=== PATIENT | female | born 1970 | race Caucasian/White ===

== ENCOUNTER → 2021-08-07 11:15 | Outpatient (BNVA) | payer OTHER, SELFPAY | PROVIDERS: PCP Internal Medicine; Visit Provider Physician Assistant Medical | DX: S89.92XA Unspecified injury of left lower leg, initial encounter (principal); X50.9XXA Other and unspecified overexertion or strenuous movements or postures, initial encounter | CPT/HCPCS: 73564; 99203 ==

== ENCOUNTER → 2021-08-13 10:59 | Outpatient (BNVA) | payer OTHER, SELFPAY | PROVIDERS: PCP Internal Medicine; Visit Provider Physician Assistant | DX: S89.92XA Unspecified injury of left lower leg, initial encounter (principal); X58.XXXA Exposure to other specified factors, initial encounter | CPT/HCPCS: 99214 ==

== ENCOUNTER → 2021-09-25 14:33 | Outpatient (BNVA) | payer OTHER, SELFPAY | PROVIDERS: PCP Nurse Practitioner Adult Health; Visit Provider Physician Assistant | DX: S89.92XD Unspecified injury of left lower leg, subsequent encounter (principal); X58.XXXD Exposure to other specified factors, subsequent encounter | CPT/HCPCS: 99213 ==

== ENCOUNTER 2021-10-01 15:00 | Outpatient (RCR) | payer OTHER, SELFPAY ==
--- NOTE | 2021-08-26 17:25 | MHC.PT.EP ---
[facility] [place] [address] Office [place] Office [address] [phone] F: [phone] F: [phone] F: [phone] F: [phone] Physical Therapy Plan of Care Date of Evaluation: Date of Surgery: n/a Diagnosis: L knee injury/pain/sprain Assessment: Pt is a pleasant 51yo F who presents to PT after injuring her L knee at work on 08/07/21. She presents to PT with current impairments in pain, decreased ROM, decreased quad and hip strength, decreased muscle length, soft tissue restrictions, and impaired gait. She is limited functionally by prolonged sitting, knee bending, prolonged standing/walking. She is an excellent candidate for skilled PT in order to address current impairments to facilitate return to PLOF. She will be seen 2x/week for 4 weeks and will be reassessed at that time. Frequency and Duration: The patient will be seen 2x/week for 4 weeks Short Term Goals: Pt will be I with [facility] to promote self management of symptoms Pt will increase L knee flexion by at least 5 degrees Vb Developer Goals: Pt will tolerate ambulation > 30 min on even and uneven surfaces with minimal to no pain Pt will demonstrate improvements in functional mobility as evidenced by statistically significant improvement in LEFI outcome measure Treatment Plan: Modalities to reduce pain, spasms and effusion. Manual therapy to restore motion and function. Therapeutic exercise to improve strength and flexibility. Neuromuscular re-education for posture and balance. Therapeutic activities to return to functional activities of daily living. Electronically signed by: Kelsy Charlton, PT, DPT Please sign and return to therapist. Thank you for your referral.
--- NOTE | 2021-10-14 17:33 | MHC.PT.DC ---
[facility] [place] Office [place] Office [place] Office [address] Suad Cheng 140 [facility] [phone] F: [phone] F: [phone] F: [phone] F: [phone] Physical Therapy Discharge Report Diagnosis: L knee injury/pain/sprain Date of Surgery: n/a Date of Evaluation: 08/26/21 Date of Discharge: 10/14/21 Treatments to Date: 9 Cancellations to Date: No Shows to Date: Discharge Status: Improved Function Patient Elected to Stop Discharge Summary: Pt was seen for PT from 08/26/21-10/01/21. Her last attended appointment was 10/01/21. She was demonstrating improvements in quad and hip strength and was also having a decrease in pain. Pt had a follow up with doctor and an MRI which was negative for meniscus injury. She called [facility] on 10/09/21 to report that she had followed up with her doctor and that she feels ready to be D/C to [facility]. Pt is being D/C from skilled PT at this time. Electronically signed by: Kelsy Charlton, PT, DPT Please sign and return to therapist. Thank you for your referral.
== END 2021-10-14 17:33 | disposition home or self-care (01) ==
LOC: HO.PT 15:00
PROVIDERS: PCP Nurse Practitioner Adult Health; Visit Provider Physician Assistant Medical
DX: S83.92XD Sprain of unspecified site of left knee, subsequent encounter (principal)
CPT/HCPCS: 97014; 97110; 97112; 97140; 97161; 97530

== ENCOUNTER 2021-10-07 08:47 | Outpatient (REF) | payer OTHER, SELFPAY ==
--- NOTE | ~2021-10-07 | MR_ITS ---
EXAMINATION: MR KNEE WITHOUT CONTRAST, LEFT CLINICAL INFORMATION: Left knee pain COMPARISON: Radiographs 08/07/2021 TECHNIQUE: MRI of the knee without contrast was performed using routine sequences on a high-field scanner. FINDINGS: MENISCI: Medial Meniscus: Intact Lateral Meniscus: Intact LIGAMENTS: Cruciate: Intact Collateral: Intact EXTENSOR MECHANISM: Intact ARTICULAR CARTILAGE/BONE: Patellofemoral Compartment: Articular cartilage thinning and surface irregularity throughout the lateral patellar facet as well as the central and medial trochlea. Medial Compartment: Cartilage thinning and surface irregularity along the weightbearing femoral condyle. Cartilage signal heterogeneity of the posterior most femoral condyle and small marginal osteophytes. Lateral Compartment: Partial-thickness cartilage loss and signal heterogeneity of the tibia. Small marginal osteophytes. JOINT FLUID AND BURSAE: Trace joint effusion and Elise's cyst. MR/MR knee LT wo con IMPRESSION: No meniscal tear. Mild-moderate tricompartmental osteoarthritis with a trace joint effusion/Elise's cyst.
== END 2021-10-07 08:48 | disposition home or self-care (01) ==
LOC: HO.MRI 08:47
PROVIDERS: Visit Provider Internal Medicine
DX: M25.562 Pain in left knee (principal); R26.89 Other abnormalities of gait and mobility
CPT/HCPCS: 73721

== ENCOUNTER → 2021-10-09 14:49 | Outpatient (BNVA) | payer OTHER, SELFPAY | PROVIDERS: PCP Nurse Practitioner Adult Health; Visit Provider Physician Assistant | DX: S83.8X2D Sprain of other specified parts of left knee, subsequent encounter (principal); X58.XXXD Exposure to other specified factors, subsequent encounter | CPT/HCPCS: 99213 ==

== ENCOUNTER 2022-07-17 07:47 | Outpatient (REF) | payer OTHER, SELFPAY ==
--- NOTE | ~2022-07-17 | CT_ITS ---
EXAMINATION: CT CHEST WITH CONTRAST CLINICAL INFORMATION: *Elongated no COMPARISON: CT abdomen and pelvis 11/10/[address] abdomen pelvis 03/19/2017 TECHNIQUE: Multidetector volumetric CT imaging of the chest was obtained after the administration of 50 mL of Omnipaque 350 intravenous contrast without immediate adverse reactions. Axial MIP volume rendering provided. Sagittal and coronal reformatted images were obtained. This CT examination was performed using dose optimization techniques as appropriate, variously including the following: *Automated exposure control *Adjustment of mA and/or kV according to patient size (this includes techniques or standardized protocols for targeted exams where dose is matched to indication/reason for exam; i.e. extremities or head) *Use of iterative reconstruction technique DLP: 333 mGy-cm FINDINGS: CERTIFIED MEDICAL BILLER: Unremarkable LUNGS: The lungs are well-expanded and clear of acute pneumonic consolidation. Again visualized is a 3 mm nodule right lower lobe axial image 102/6, stable to last 2 CT chest extending to 2017 study. No additional pulmonary nodules seen. No consolidation. Minimal atelectatic changes right upper lobe anterior segment. MEDIASTINUM: The thyroid lobes are symmetrical and normal. Central trachea and the bronchi widely patent heart size and the great vessels are normal caliber. No pericardial effusion seen. Central trachea and the bronchi widely patent. There is no pericardial effusion. There are no coronary artery calcifications. PLEURA: There is no pleural effusion. No pleural mass or thickening. AXILLA: No lymphadenopathy. UPPER ABDOMEN: Visualized liver, spleen, pancreas and bilateral adrenal glands unremarkable. The gallbladder has been surgically removed. OSSEOUS STRUCTURES: There is mild spondylosis throughout dorsal spine. No aggressive lytic or sclerotic process seen. CT/CT chest w IV con IMPRESSION: Stable 3 mm pulmonary nodule right lower lobe. No new pulmonary nodules seen. No acute cardiopulmonary process. Fleischner guidelines were followed.
[2022-07-17] MEDS: iohexoL 350 MG/ML 100 ML INFUS..BTL IV (08:37)
[2022-07-17 09:33] LABS: Creatinine POC 0.8 mg/dL (0.5-1.4); GFR POC > 60
== END 2022-07-17 07:48 | disposition home or self-care (01) ==
LOC: HO.CT 07:47
PROVIDERS: PCP Nurse Practitioner Adult Health; Visit Provider Nurse Practitioner Adult Health
DX: R91.1 Solitary pulmonary nodule (principal)
CPT/HCPCS: 71260; 82565; Q9967